=== PATIENT | female | born 1955 | race Two or more races ===

== ENCOUNTER 2023-03-16 23:09 | Emergency (ER) | payer OTHER ==
[~2023-03-16] VITALS: Ht 149.9 cm; Wt 65.2 kg
[2023-03-16 23:56] VITALS: BP 126/58; PULSE 51; RESP 14; TEMP 98.1; O2SAT 98
[2023-03-17] MEDS ORDERED: SULF800T23 PO (03:41)
[2023-03-17] MEDS ORDERED: TETANUS-DIPTH-ACEL PERTUSSIS 0.5ML SYR Tdap IM ONE (03:45)
== END 2023-03-17 04:23 | disposition home or self-care (01) ==
LOC: ER 23:09
DX: S91.331A Puncture wound without foreign body, right foot, initial encounter (principal); G89.29 Other chronic pain; M54.9 Dorsalgia, unspecified; Z79.899 Other long term (current) drug therapy; W46.0XXA Contact with hypodermic needle, initial encounter; Y93.89 Activity, other specified; Y92.89 Other specified places as the place of occurrence of the external cause; Y99.8 Other external cause status
CPT/HCPCS: 73630; 90471; 90715